=== PATIENT | female | born 1940 | race Caucasian/White ===

== ENCOUNTER 2016-07-05 14:56 | Emergency (ER) | payer OTHER ==
[2016-07-05 16:29] LABS: ABSOLUTE LYMPHOCYTES (AUTO) 1.3 10^3/uL (0.5-4.7); ABSOLUTE MONOCYTES (AUTO) 0.5 10^3/uL (0.1-1.4); BASOPHILS % (AUTO) 0.8 % (0-2); EOSINOPHILS % (AUTO) 0.2 % (0-6); HEMATOCRIT 39.5 % (36.0-47.0); HEMOGLOBIN 12.8 g/dL (12.0-15.5); HGB HCT DIFFERENCE -1.1; LYMPHOCYTES % (AUTO) 26.6 % (13-45); MEAN CORPUSCULAR HEMOGLOBIN 30.2 pg (27.0-33.4); MEAN CORPUSCULAR HGB CONC 32.5 g/dL (32.0-36.0); MEAN CORPUSCULAR VOLUME 93 fl (80-97); MONOCYTES % (AUTO) 10.8 % (3-13); RED BLOOD COUNT 4.25 10^6/uL (3.72-5.28); RED CELL DISTRIBUTION WIDTH 16.2 % (11.5-14.0); SEGMENTED NEUTROPHILS % (AUTO) 61.6 % (42-78); WHITE BLOOD COUNT 4.9 10^3/uL (4.0-10.5)
[2016-07-05 16:41] LABS: ANION GAP 9 (5-19); BLOOD UREA NITROGEN 27 mg/dL (7-20); CALCIUM 9.3 mg/dL (8.4-10.2); CARBON DIOXIDE 28 mmol/L (22-30); CHLORIDE 104 mmol/L (98-107); CREATININE RESULT 1.19 mg/dL (0.52-1.25); GLUCOSE 101 mg/dL (75-110); SODIUM 141.2 mmol/L (137-145)
[2016-07-05] MEDS ORDERED: ACETAMINOPHEN 325 MG TABLET PO ONE (20:10)
--- NOTE | 2016-07-05 23:58 | ER Document Report ---
ED General - General Chief Complaint: Syncope Stated Complaint: POSSIBLE SYNCOPE Notes: Patient is a 76-year-old female with past medical history of severe pulmonary hypertension with an echocardiogram several months ago that showed RV systolic pressure of 69 mmHg who presents with 12 episodes of syncope in the last 3 weeks. She is scheduled for right heart catheterization on the due to her increasing syncope with concerns of this is related to her pulmonary hypertension. She saw her inspector soldering yesterday Dr. Shane who recommended this approach. States today she is coming the emergency department as she had an episode of syncope when attempting to walk a distance of less than 20 feet. Relates that she became short of breath, lightheaded, "everything turns yellow" and then passed out. States this is similar to prior episodes of syncope in the last several weeks. Notes that her frequency of syncope has been steadily increasing to now where she is passing out almost every single day. She denies any chest pain, shortness of breath, headache, neck pain, weakness or numbness. Denies any trauma during any of these episodes of syncope. She has not noted that nothing seems to improve or worsen the frequency of syncope. TRAVEL OUTSIDE OF THE [place] IN LAST 30 DAYS: No - Related Data Allergies/Adverse Reactions: No Known Allergies Allergy (Verified 07/05/16 21:08) Past Medical History - Social History Smoking Status: Never Smoker Frequency of alcohol use: None Drug Abuse: None Lives with: Alone Family History: COPD, Malignancy - Esophageal cancer-father - Past Medical History Cardiac Medical History: Reports: Hx Coronary Artery Disease, Hx Hypercholesterolemia, Hx Hypertension Endocrine Medical History: Reports: Hx Hypothyroidism Past Surgical History: Reports: Hx Cardiac Catheterization, Hx Cardiac Surgery - Stent, Hx Cholecystectomy, Hx Hysterectomy - Immunizations Hx Diphtheria, Pertussis, Tetanus Vaccination: Yes Review of Systems - Review of Systems Notes: Constitutional: Negative for fever. HENT: Negative for sore throat. Eyes: Negative for visual changes. Cardiovascular: Negative for chest pain. Respiratory: Negative for shortness of breath. Gastrointestinal: Negative for abdominal pain, vomiting or diarrhea. Genitourinary: Negative for dysuria. Musculoskeletal: Negative for back pain. Skin: Negative for rash. Neurological: Negative for headaches, weakness or numbness. 10 point ROS negative except as marked above and in HPI. Physical Exam - Vital signs Vitals: Temp Pulse Resp BP Pulse Ox 97.4 F 68 15 132/87 H 96 07/05/16 15:20 07/05/16 15:20 07/05/16 15:20 07/05/16 15:20 07/05/16 15:20 Interpretation: Normal Notes: PHYSICAL EXAMINATION: GENERAL: Well-appearing, well-nourished and in no acute distress. HEAD: Atraumatic, normocephalic. EYES: Pupils equal round and reactive to light, extraocular movements intact, sclera anicteric, conjunctiva are normal. ENT: nares patent, oropharynx clear without exudates. Moist mucous membranes. NECK: Normal range of motion, supple without lymphadenopathy LUNGS: Breath sounds clear to auscultation bilaterally and equal. No wheezes rales or rhonchi. HEART: Regular rate and rhythm without murmurs ABDOMEN: Soft, nontender, normoactive bowel sounds. No guarding, no rebound. No masses appreciated. EXTREMITIES: Normal range of motion, no pitting or edema. No cyanosis. NEUROLOGICAL: No focal neurological deficits. Moves all extremities spontaneously and on command. PSYCH: Normal mood, normal affect. SKIN: Warm, Dry, normal turgor, no rashes or lesions noted. Course - Re-evaluation Re-evalutation: 07/05/16 23:57 Patient presents with increasingly frequent episodes of syncope in the setting of severe pulmonary hypertension, concerning for progressively worsening pulmonary hypertension versus possible repeat arrhythmias. He appears unremarkable and she is in no acute distress. She is saturating 90% to 93% on 3 L by nasal cannula at rest. She does use 5 L of examination but I suspect that she is having severe hypoxemia during even minimal exertion that this may be the cause of her syncope. Given the degree of how often she is syncopized and its increasing frequency, I believe she needs a more urgent workup been a week from today. Patient does not have any medical therapies for her pulmonary hypertension. I discussed this case with the hospitalist who recommended transfer as there is no further therapies that can be offered here. The patient has been accepted in transfer by the hospitalist at [facility], . She is otherwise hemodynamically normal limits in no acute distress. - Vital Signs Vital signs: Temp Pulse Resp BP Pulse Ox 97.9 F 68 17 141/81 H 91 L 07/05/16 22:00 07/05/16 15:20 07/05/16 22:33 07/05/16 22:33 07/05/16 22:33 - Laboratory Result Diagrams: 07/05/16 15:30 07/05/16 15:30 Laboratory results interpreted by me: 07/05/16 07/05/16 15:30 15:30 RDW 16.2 H BUN 27 H Est GFR ( Amer) 54 L Est GFR (Non-Af Amer) 44 L - Diagnostic Test Radiology reviewed: Image reviewed, Reports reviewed Radiology results interpreted by me: 07/05/16 23:58 Chest x-ray: Myocardial megaly and vascular congestion - EKG Interpretation by Me Additional EKG results interpreted by me: 07/05/16 23:59 Normal sinus rhythm. Rate 64. No ST elevations or depressions. T-wave inversions in V3 through 6 unchanged from prior. Also T-wave inversions in leads 3 and aVF again unchanged from prior. QTC is 467. Discharge - Discharge Clinical Impression: Chronic hypoxemic respiratory failure, Moderate to severe pulmonary hypertension Syncope Qualifiers: Syncope type: unspecified Qualified Code(s): R55 - Syncope and collapse Condition: Fair Disposition: [facility]
--- NOTE | 2016-07-06 01:28 | ER Document Report ---
Doctor's Note Notes: 07/06/16 05:36 Patient vitals are stable. Patient is asleep in the room. No complaints. Patient is still pending transfer at this time. Stable.
--- NOTE | 2016-07-06 09:43 | EKG REPORT ---
SEVERITY:- ABNORMAL ECG - SINUS RHYTHM NONSPECIFIC T ABNORMALITIES, LATERAL LEADS : Confirmed by: Iris Mcleod MD 06-Jul-2016 09:42:15
[2016-07-06] MEDS: GABAPENTIN 400 MG CAPSULE PO SCH ×2 (12:54→23:57)
[2016-07-06] MEDS: LACTOBACILLUS ACIDOPHILUS 250 MG TAB PO SCH (12:54)
[2016-07-06] MEDS ORDERED: GABAPENTIN 400 MG CAPSULE PO SCH (14:00)
--- NOTE | 2016-07-06 15:55 | ER Document Report ---
Doctor's Note Notes: 07/06/16 15:55 pt stable at this time, reviewed labs and awaiting transfer
--- NOTE | 2016-07-06 15:59 | ER Document Report ---
Doctor's Note Notes: 07/06/16 15:58 This 76-year-old female is here for syncope and pulmonary hypertension. She care was turned over to me at shift change at 6 AM this morning. Her stay throughout the day has been uneventful. I did order all of her regular medications after a comprehensive list was obtained at some point today. She continues to wait on transport to the [facility], waiting for bed availability. She normally receives care there and has had workups there and requests to return there. Patient's care is turned over to Dr. Rodriges at this time while she continues to wait on bed availability and transport [facility].
[2016-07-06] MEDS ORDERED: (PENDING PHARMACY ID) (Lactobacillus Acidophilus [Acidophilus] 1 EACH) PO SCH (18:00)
[2016-07-06] MEDS: ATORVASTATIN CALCIUM 20 MG TABLET PO SCH (23:57)
[2016-07-06] MEDS: TOLTERODINE TARTRATE 1 MG TABLET PO SCH (23:58)
--- NOTE | 2016-07-07 05:05 | ER Document Report ---
Doctor's Note Notes: 07/07/16 05:05 Patient is still awaiting transfer to tertiary care center. No complaints. Vitals are stable.
[2016-07-07] MEDS: GABAPENTIN 400 MG CAPSULE PO SCH ×3 (07:39→22:01)
[2016-07-07] MEDS: LACTOBACILLUS ACIDOPHILUS 250 MG TAB PO SCH ×2 (09:31→17:16)
[2016-07-07] MEDS: TOLTERODINE TARTRATE 1 MG TABLET PO SCH ×2 (09:32→22:00)
[2016-07-07] MEDS ORDERED: ASPIRIN 81 MG TABLET, ENT COATED PO SCH (10:00)
[2016-07-07] MEDS ORDERED: LISINOPRIL 10 MG TABLET PO SCH (10:00)
[2016-07-07] MEDS ORDERED: FLUOXETINE HCL 20 MG CAPSULE PO SCH (10:00)
[2016-07-07] MEDS ORDERED: (PENDING PHARMACY ID) (Tolterodine Tartrate [Detrol La] 4 MG) PO SCH (10:00)
[2016-07-07] MEDS ORDERED: LEVOTHYROXINE SODIUM 0.112 MG TABLET PO SCH (10:00)
[2016-07-07] MEDS ORDERED: AMLODIPINE BESYLATE 10 MG TABLET PO SCH (10:00)
[2016-07-07] MEDS ORDERED: ACETAMINOPHEN 325 MG TABLET PO ONE (12:27)
[2016-07-07] MEDS: ATORVASTATIN CALCIUM 20 MG TABLET PO SCH (22:00)
--- NOTE | 2016-07-08 01:57 | ER Document Report ---
Doctor's Note Notes: 07/08/16 01:57 I evaluated the patient, she is now been here for 58 hours awaiting for transfer , she unfortunately becomes quite hypoxic when she moves around, when I checked on her she was satting 75% on nasal cannula, she denies any distress at all states this is normal for her. I will increase her oxygen level and will monitor her closely
[2016-07-08] MEDS: GABAPENTIN 400 MG CAPSULE PO SCH (06:32)
--- NOTE | 2016-07-08 07:57 | ER Document Report ---
Doctor's Note Notes: 07/08/16 07:57 Transport is here for the patient at this time. She will be leaving shortly. She is alert oriented smiling and grateful to be finally transported. Vital signs are stable at this time.
[2016-07-08 07:59] VITALS: BP 133/81
== END 2016-07-08 08:03 | disposition short-term general hospital (02) ==
LOC: ER 14:56
DX: J96.11 Chronic respiratory failure with hypoxia (principal); I27.2 Other secondary pulmonary hypertension; R55 Syncope and collapse; I25.10 Atherosclerotic heart disease of native coronary artery without angina pectoris; E78.00 Pure hypercholesterolemia, unspecified; E03.9 Hypothyroidism, unspecified; Z90.49 Acquired absence of other specified parts of digestive tract; Z90.710 Acquired absence of both cervix and uterus
CPT/HCPCS: 36415; 71010; 80048; 84484; 85025; 93005; 93010; 99285